=== PATIENT | female | born 1960 | race Caucasian/White ===

== ENCOUNTER 2025-05-30 12:25 | Emergency (ER) | payer OTHER ==
[~2025-05-30] VITALS: Ht 162.6 cm; Wt 74.8 kg
[2025-05-30] MEDS ORDERED: SYNTHROID100 MCG PO (12:53)
[2025-05-30] MEDS ORDERED: LORazepam 2 MG/ML VIAL IV ONE (13:15)
[2025-05-30 13:17] LABS: BASO % 0.4 % (0.1-1.2); EOS # 0.32 (0.04-0.54); EOS % 4.4 % (0.7-7.0); LYMPH # 1.54 (1.18-3.74); LYMPH % 21.0 % (19.3-53.1); MEAN PLATELET VOLUME 9.20 fl (9.4-12.4); MONO # 0.74 (0.24-0.82); MONO % 10.1 % (4.7-12.5); NEUT # 4.68 (1.56-6.13); NEUT % 63.7 % (34.0-71.1); RED CELL DISTRIBUTION WIDTH 13.9 % (11.6-14.4)
[2025-05-30 13:37] LABS: INR 0.99
[2025-05-30 13:45] LABS: ALT/SGPT 47.0 U/L (12-78); AST/SGOT 20.0 U/L (15-37); BILIRUBIN TOTAL 0.26 mg/dL (0.3-1.2); BUN CREA RATIO 19.0 (7.0-25.0); CREATININE SERUM 0.94 mg/dL (0.55-1.02); GFR 59.58; GLOBULINA 4.6 G/DL (2.4-3.5); GLUCOSE FASTING 122.0 mg/dL (65-100); OSMOLALITY SERUM 286.0 MOSM/KG (275-295)
[2025-05-30 13:51] LABS: T4 TOTAL 10.81 UG/DL (4.8-13.9); TSH 0.965 uIU/mL (0.358-3.74)
== END 2025-05-31 04:33 | disposition left against medical advice (07) ==
LOC: ER 12:25
PROVIDERS: Preventive Medicine Public Health & General Preventive Medicine
DX: G40.89 Other seizures (principal)
CPT/HCPCS: 36415; 70460; 71045; 93005; 93041; 96365; 99284; J3490 ×2; Q9965